=== PATIENT | female | born 1990 ===

== ENCOUNTER 2023-01-11 12:49 | Emergency (ER) | payer MEDICAID, SELFPAY ==
--- NOTE | ~2023-01-11 | XR_ITS ---
EXAMINATION: XR CHEST CLINICAL INFORMATION: Chest pain and shortness of breath COMPARISON: None available. TECHNIQUE: 2 views of the chest were obtained. FINDINGS: Heart is normal in size. Mild perihilar interstitial thickening and peribronchial cuffing is consistent with underlying bronchitis/reactive airway disease. No focal airspace consolidations or pleural effusions XR/XR chest 2V IMPRESSION: Perihilar interstitial thickening and peribronchial cuffing most consistent with bronchitis/reactive airway disease
--- NOTE | 2023-01-11 12:51 | ECG_ITS ---
Test Reason : CHEST PAIN Blood Pressure : / mmHG Vent. Rate : 061 BPM Atrial Rate : 061 BPM P-R Int : 156 ms QRS Dur : 082 ms QT Int : 428 ms P-R-T Axes : 044 032 039 degrees QTc Int : 430 ms Normal sinus rhythm Normal ECG No previous ECGs available Referred By: María Márquez Electronically Signed By:JACQUELINE LYNCH MD
--- NOTE | 2023-01-11 13:00 | ED.CHESTPAIN ---
HPI - Chest Pain General Chief Complaint: Chest Pain <RAHEL Johnson - Last Filed: 01/11/23 13:05> Stated Complaint: chest pains, sob <RAHEL Johnson - Last Filed: 01/11/23 13:05> Time Seen by Provider: 01/11/23 13:21 <RAHEL Johnson - Last Filed: 01/11/23 13:05> Source: patient and electronic repair troubleshooter <Christine Dumont NP - Last Filed: 01/11/23 15:48> Mode of arrival: ambulatory <PARISH Murphy Last Filed: 01/11/23 15:48> Limitations: language barrier <PARISH Murphy Last Filed: 01/11/23 15:48> History of Present Illness HPI narrative: Patient is a 32-year-old female with no reported past medical history, does not take any daily medications, nonsmoker, presenting with pain under her bilateral breasts radiating through to her back for approximately 1 hour prior to arrival. She reports pain is worse with movement and with deep breaths. 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 She denied taking any medications prior to arrival. She denies any history of blood clots, denies any hemoptysis, denies use of OCPs, denies any calf pain or tenderness. She denies any cough, fever, or other recent URI symptoms. <Christine Dumont NP - Last Filed: 01/11/23 15:48> Related Data Home Medications: Previous Rx's Medication Instructions Recorded albuterol sulfate 90 mcg/actuation 2 puff inhalation Q6H PRN 01/11/23 aerosol inhaler shortness of breath or wheezing #6.7 grams prednisone 20 mg tablet 40 mg PO DAILY #10 tabs 01/11/23 <RAHEL Johnson Last Filed: 01/11/23 13:05> Allergies/Adverse Reactions: Allergies Allergy/AdvReac Type Severity Reaction Status Date / Time No Known Allergies Allergy Verified 01/11/23 12:51 <RAHEL Johnson Last Filed: 01/11/23 13:05> Review of Systems Review of Systems: As per HPI. <Christine Dumont NP - Last Filed: 01/11/23 15:48> Yes all other systems are reviewed and are negative <Christine Dumont NP - Last Filed: 01/11/23 15:48> Constitutional: Constitutional: Reports as per HPI <Christine Dumont NP - Last Filed: 01/11/23 15:48> [facility] Social History Social History: Social History Alcohol intake: never Smoked in Last 30 Days: No Use of substances other than those prescribed or required for medical reasons: No Advance Directives: No Advance Directives Information Provided: Yes Patient : No <RAHEL Johnson - Last Filed: 01/11/23 13:05> Physical Exam Vital Signs: Vital Signs: Last Vital Signs Temp 97.8 F 01/11/23 13:02 Pulse 64 01/11/23 14:00 Resp 18 01/11/23 14:00 BP 139/74 01/11/23 13:02 Pulse Ox 100 01/11/23 14:00 O2 Del Method Room Air 01/11/23 14:00 BMI result Body Mass Index 27.5 <RAHEL Johnson - Last Filed: 01/11/23 13:05> Vital Signs: Last Vital Signs Temp 97.8 F 01/11/23 13:02 Pulse 64 01/11/23 14:00 Resp 18 01/11/23 14:00 BP 139/74 01/11/23 13:02 Pulse Ox 100 01/11/23 14:00 O2 Del Method Room Air 01/11/23 14:00 BMI result Body Mass Index 27.5 <Christine Dumont NP - Last Filed: 01/11/23 15:48> Const: General: cooperative, healthy appearing and no acute distress <Christine Dumont NP - Last Filed: 01/11/23 15:48> Orientation/consciousness: oriented to person, oriented to place, oriented to time and patient oriented x3 <Christine Dumont NP - Last Filed: 01/11/23 15:48> Limitations: no limitations <Christine Dumont NP - Last Filed: 01/11/23 15:48> HEENT: Head: Yes normocephalic and Yes atraumatic <Christine Dumont NP - Last Filed: 01/11/23 15:48> Ears: external ears normal <Christine Dumont NP - Last Filed: 01/11/23 15:48> General nose exam: Normal external nose present <Christine Dumont NP - Last Filed: 01/11/23 15:48> Face and sinus: Yes face symmetric <Christine Dumont NP - Last Filed: 01/11/23 15:48> Mouth: oropharynx normal and moist mucous membranes <Christine Dumont NP - Last Filed: 01/11/23 15:48> Throat: Yes uvula midline <Christine Dumont NP - Last Filed: 01/11/23 15:48> Eyes: Pupils: Equal, round and reactive pupils present <Christine Dumont NP - Last Filed: 01/11/23 15:48> Neck: Neck: Yes normal visual inspection and Yes supple <Christine Dumont NP - Last Filed: 01/11/23 15:48> Chest: Chest palpation & inspection: normal inspection of the chest, normal palpation of entire chest wall, no crepitus, no tenderness and No rash <Christine Dumont NP - Last Filed: 01/11/23 15:48> Resp: Effort & Inspection: able to speak in complete sentences, abnormal respiratory pattern (shallow breaths), no cough, no respiratory distress, no tripod positioning and other (shallow breaths) <Christine Dumont NP - Last Filed: 01/11/23 15:48> Auscultation: clear to auscultation bilaterally, no crackles, no rhonchi, no wheezes and lung sounds not diminished <Christine Dumont NP - Last Filed: 01/11/23 15:48> Cardio: Rate: regular rate <Christine Dumont NP - Last Filed: 01/11/23 15:48> Rhythm: regular rhythm <Christine Dumont NP - Last Filed: 01/11/23 15:48> Heart sounds: S1 normal heart sound present and S2 normal heart sound present <Christine Dumont NP - Last Filed: 01/11/23 15:48> GI: Palpation (GI): Soft to palpation and nontender <Christine Dumont NP - Last Filed: 01/11/23 15:48> Auscultation: normoactive bowel sounds <Christine Dumont NP - Last Filed: 01/11/23 15:48> : General: Yes no CVA tenderness <Christine Dumont NP - Last Filed: 01/11/23 15:48> Back/Spine/Pelvis: Back: no CVA tenderness <Christine Dumont NP - Last Filed: 01/11/23 15:48> Skin: General skin exam: elasticity normal and turgor normal <Christine Dumont NP - Last Filed: 01/11/23 15:48> Neuro: General: oriented to person, oriented to place, oriented to time, patient oriented x3, moves all extremities, no focal motor deficits and CN's II-XI intact bilaterally <Christine Dumont NP - Last Filed: 01/11/23 15:48> Cranial nerves: Yes Equal, round and reactive pupils present <Christine Dumont NP - Last Filed: 01/11/23 15:48> Cognition (Neuro): normal cognition <Christine Dumont NP - Last Filed: 01/11/23 15:48> Extrem: General: Yes full ROM, Yes no pedal edema and Yes no calf tenderness <Christine Dumont NP - Last Filed: 01/11/23 15:48> Psych: Mental Status: mental status grossly normal <Christine Dumont NP - Last Filed: 01/11/23 15:48> Affect: normal affect <Christine Dumont NP - Last Filed: 01/11/23 15:48> Thought process: Normal thought process present <Christine Dumont NP - Last Filed: 01/11/23 15:48> Course Course Course Narrative: RME: 32yo F w/no sig PMHx c/o SOB, CP and lung pain x 1hr. Recently traveled to [place]. denies hx clots, smoking, oral OCPs Patient appears uncomfortable, tachypneic, shallow breathing EKG, labs including d-dimer, CXR, duoneb ordered Full HPI, ROS and PE to be performed by primary ED provider. <RAHEL Johnson - Last Filed: 01/11/23 13:05> RME: 32yo F w/no sig PMHx c/o SOB, CP and lung pain x 1hr. Recently traveled to [place]. denies hx clots, smoking, oral OCPs Patient appears uncomfortable, tachypneic, shallow breathing EKG, labs including d-dimer, CXR, duoneb ordered Full HPI, ROS and PE to be performed by primary ED provider. 14:45 Labs unremarkable, troponin and D-dimer negative. Patient reports symptoms improved slightly after breathing treatment. Lungs remain clear. Awaiting results of chest x-ray. Will treat pain with ketorolac and Flexeril. 15:30 XR/XR chest 2V IMPRESSION: Perihilar interstitial thickening and peribronchial cuffing most consistent with bronchitis/reactive airway disease Will treat with short course of prednisone and albuterol inhaler, instructed patient to follow up with her PCP, return precautions discussed at bedside. <Christine Dumont NP - Last Filed: 01/11/23 15:48> Medications Administered Discontinued Medications Generic Name Dose Route Start Last Admin Trade Name Freq PRN Reason Stop Dose Admin Albuterol/Ipratropium 3 ml 01/11/23 13:04 01/11/23 13:25 Albuterol/Iprat 2.5/0.5mg 3 Ml Ampul.Neb INHALE 01/11/23 13:05 3 ml ONCE ONE Administration Cyclobenzaprine HCl 10 mg 01/11/23 14:27 01/11/23 15:01 Cyclobenzaprine Hcl 10 Mg Tablet PO 01/11/23 14:28 10 mg ONCE ONE Administration Ketorolac Tromethamine 30 mg 01/11/23 14:27 01/11/23 15:01 Ketorolac Tromethamine 30 Mg/Ml Vial IM 01/11/23 14:28 30 mg ONCE ONE Administration <RAHEL Johnson - Last Filed: 01/11/23 13:05> Medications Administered Discontinued Medications Generic Name Dose Route Start Last Admin Trade Name Mark PRN Reason Stop Dose Admin Albuterol/Ipratropium 3 ml 01/11/23 13:04 01/11/23 13:25 Albuterol/Iprat 2.5/0.5mg 3 Ml Ampul.Neb INHALE 01/11/23 13:05 3 ml ONCE ONE Administration Cyclobenzaprine HCl 10 mg 01/11/23 14:27 01/11/23 15:01 Cyclobenzaprine Hcl 10 Mg Tablet PO 01/11/23 14:28 10 mg ONCE ONE Administration Ketorolac Tromethamine 30 mg 01/11/23 14:27 01/11/23 15:01 Ketorolac Tromethamine 30 Mg/Ml Vial IM 01/11/23 14:28 30 mg ONCE ONE Administration <Christine Dumont NP - Last Filed: 01/11/23 15:48> Medical Decision Making Medical Decision Making MDM Narrative: Patient is a 32-year-old female with no reported past medical history, does not take any daily medications, nonsmoker, presenting with acute onset pain under her bilateral breasts radiating through to her back for approximately 1 hour prior to arrival. On exam patient is noted to have shallow respirations and appears somewhat uncomfortable, however, lungs CTA throughout, oxygen 99-100% on room air, afebrile, not tachycardic, no calf swelling or tenderness, no LE edema. No significant pmhx, HEART score 0, PERC negative, history without concerning features (not substernal, not exertional, not relieved with rest). Concern for ACS, PE, pneumothorax, pneumonia, GERD, musculoskeletal cause . Lower concern for aortic dissection, esophageal rupture, cardiac tamponade, endocarditis, pericarditis. Plan: labs including troponin and d-dimer, EKG, CXR, nebulizer tx Please refer to course for remaining clinical decision making. <Christine Dumont NP - Last Filed: 01/11/23 15:48> Differential Diagnosis Differential Diagnoses: The differential diagnosis associated with the presentation includes <Christine Dumont NP - Last Filed: 01/11/23 15:48> As above. <Christine Dumont NP - Last Filed: 01/11/23 15:48> Lab Data [facility] Lab Attestation statement: I reviewed the patient's lab results. <Christine Dumont NP - Last Filed: 01/11/23 15:48> Result Diagrams: 01/11/23 13:16 01/11/23 13:16 <RAHEL Johnson - Last Filed: 01/11/23 13:05> Labs: Lab Results 01/11/23 01/11/23 01/11/23 Range/Units 13:16 13:16 13:16 WBC 8.5 (4.8-10.8) X10*3/uL RBC 5.00 (4.20-5.50) X10*6/uL Hgb 15.0 (12.0-16.0) g/dl Hct 44.1 (37.0-47.0) % MCV 88.2 (80.0-98.0) fL MCH 30.0 (27.0-33.0) pg MCHC 34.0 (31.0-35.0) g/dl RDW 12.0 (11.0-16.0) % Plt Count 286 (160-400) X10*3/uL MPV 10.0 (9.4-12.3) fL Immature Gran % (Auto) 0.2 (0.0-0.4) % Neut % (Auto) 58.2 (45-73) % Lymph % (Auto) 34.5 (20-40) % Dade % (Auto) 5.8 (2-11) % Eos % (Auto) 0.7 (0-4) % Baso % (Auto) 0.6 (0-2) % Lymph # (Auto) 2.9 (1.2-4.9) X10*3/uL Dade # (Auto) 0.5 (0.1-1.2) X10*3/uL Eos # (Auto) 0.1 (0.0-0.4) X10*3/uL Baso # (Auto) 0.1 (0.0-0.2) X10*3/uL Abs Immat Gran (auto) 0.02 (0.00-0.03) X10*3/uL Absolute Neuts (auto) 5.0 (2.0-8.3) x10*3/uL Absolute Nucleated RBC 0.000 (0.0-0.012) X10*3/uL Nucleated RBC % (auto) 0.0 (0.0-0.2) /100WBC D-Dimer High Sensitivty 152 NG/ML Sodium 140 (135-145) mmol/L Potassium 4.1 (3.3-5.1) mmol/L Chloride 106 (96-108) mmol/L Carbon Dioxide 23 (22-29) mmol/L Anion Gap 15 (12-20) BUN 7 L (9-16) mg/dL Creatinine 0.65 (0.5-1.4) mg/dL Estim Creat Clear Calc 119.0 Estimated GFR > 60 Random Glucose 83 (60-115) mg/dL Calcium 9.8 (8.4-10.2) mg/dL Magnesium 2.2 (1.6-2.6) mg/dL Total Bilirubin 0.9 (0.0-1.0) mg/dL Direct Bilirubin 0.2 (0.0-0.5) mg/dL AST 31 (5-31) U/L ALT 25 (0-31) U/L Alkaline Phosphatase 73 (39-117) U/L Troponin I High Sens (<3.5-17.0) ng/L B-Natriuretic Peptide (<100) pg/mL Total Protein 8.5 H (6.5-8.0) g/dL Albumin 4.9 (3.5-5.0) g/dL Lipase 42 (8-78) U/L 01/11/23 01/11/23 Range/Units 13:16 13:16 WBC (4.8-10.8) X10*3/uL RBC (4.20-5.50) X10*6/uL Hgb (12.0-16.0) g/dl Hct (37.0-47.0) % MCV (80.0-98.0) fL MCH (27.0-33.0) pg MCHC (31.0-35.0) g/dl RDW (11.0-16.0) % Plt Count (160-400) X10*3/uL MPV (9.4-12.3) fL Immature Gran % (Auto) (0.0-0.4) % Neut % (Auto) (45-73) % Lymph % (Auto) (20-40) % Dade % (Auto) (2-11) % Eos % (Auto) (0-4) % Baso % (Auto) (0-2) % Lymph # (Auto) (1.2-4.9) X10*3/uL Dade # (Auto) (0.1-1.2) X10*3/uL Eos # (Auto) (0.0-0.4) X10*3/uL Baso # (Auto) (0.0-0.2) X10*3/uL Abs Immat Gran (auto) (0.00-0.03) X10*3/uL Absolute Neuts (auto) (2.0-8.3) x10*3/uL Absolute Nucleated RBC (0.0-0.012) X10*3/uL Nucleated RBC % (auto) (0.0-0.2) /100WBC D-Dimer High Sensitivty NG/ML Sodium (135-145) mmol/L Potassium (3.3-5.1) mmol/L Chloride (96-108) mmol/L Carbon Dioxide (22-29) mmol/L Anion Gap (12-20) BUN (9-16) mg/dL Creatinine (0.5-1.4) mg/dL Estim Creat Clear Calc Estimated GFR Random Glucose (60-115) mg/dL Calcium (8.4-10.2) mg/dL Magnesium (1.6-2.6) mg/dL Total Bilirubin (0.0-1.0) mg/dL Direct Bilirubin (0.0-0.5) mg/dL AST (5-31) U/L ALT (0-31) U/L Alkaline Phosphatase (39-117) U/L Troponin I High Sens < 2.7 (<3.5-17.0) ng/L B-Natriuretic Peptide 52 (<100) pg/mL Total Protein (6.5-8.0) g/dL Albumin (3.5-5.0) g/dL Lipase (8-78) U/L <RAHEL Johnson - Last Filed: 01/11/23 13:05> Lab Results 01/11/23 01/11/23 01/11/23 Range/Units 13:16 13:16 13:16 WBC 8.5 (4.8-10.8) X10*3/uL RBC 5.00 (4.20-5.50) X10*6/uL Hgb 15.0 (12.0-16.0) g/dl Hct 44.1 (37.0-47.0) % MCV 88.2 (80.0-98.0) fL MCH 30.0 (27.0-33.0) pg MCHC 34.0 (31.0-35.0) g/dl RDW 12.0 (11.0-16.0) % Plt Count 286 (160-400) X10*3/uL MPV 10.0 (9.4-12.3) fL Immature Gran % (Auto) 0.2 (0.0-0.4) % Neut % (Auto) 58.2 (45-73) % Lymph % (Auto) 34.5 (20-40) % Dade % (Auto) 5.8 (2-11) % Eos % (Auto) 0.7 (0-4) % Baso % (Auto) 0.6 (0-2) % Lymph # (Auto) 2.9 (1.2-4.9) X10*3/uL Dade # (Auto) 0.5 (0.1-1.2) X10*3/uL Eos # (Auto) 0.1 (0.0-0.4) X10*3/uL Baso # (Auto) 0.1 (0.0-0.2) X10*3/uL Abs Immat Gran (auto) 0.02 (0.00-0.03) X10*3/uL Absolute Neuts (auto) 5.0 (2.0-8.3) x10*3/uL Absolute Nucleated RBC 0.000 (0.0-0.012) X10*3/uL Nucleated RBC % (auto) 0.0 (0.0-0.2) /100WBC D-Dimer High Sensitivty 152 NG/ML Sodium 140 (135-145) mmol/L Potassium 4.1 (3.3-5.1) mmol/L Chloride 106 (96-108) mmol/L Carbon Dioxide 23 (22-29) mmol/L Anion Gap 15 (12-20) BUN 7 L (9-16) mg/dL Creatinine 0.65 (0.5-1.4) mg/dL Estim Creat Clear Calc 119.0 Estimated GFR > 60 Random Glucose 83 (60-115) mg/dL Calcium 9.8 (8.4-10.2) mg/dL Magnesium 2.2 (1.6-2.6) mg/dL Total Bilirubin 0.9 (0.0-1.0) mg/dL Direct Bilirubin 0.2 (0.0-0.5) mg/dL AST 31 (5-31) U/L ALT 25 (0-31) U/L Alkaline Phosphatase 73 (39-117) U/L Troponin I High Sens (<3.5-17.0) ng/L B-Natriuretic Peptide (<100) pg/mL Total Protein 8.5 H (6.5-8.0) g/dL Albumin 4.9 (3.5-5.0) g/dL Lipase 42 (8-78) U/L 01/11/23 01/11/23 Range/Units 13:16 13:16 WBC (4.8-10.8) X10*3/uL RBC (4.20-5.50) X10*6/uL Hgb (12.0-16.0) g/dl Hct (37.0-47.0) % MCV (80.0-98.0) fL MCH (27.0-33.0) pg MCHC (31.0-35.0) g/dl RDW (11.0-16.0) % Plt Count (160-400) X10*3/uL MPV (9.4-12.3) fL Immature Gran % (Auto) (0.0-0.4) % Neut % (Auto) (45-73) % Lymph % (Auto) (20-40) % Dade % (Auto) (2-11) % Eos % (Auto) (0-4) % Baso % (Auto) (0-2) % Lymph # (Auto) (1.2-4.9) X10*3/uL Dade # (Auto) (0.1-1.2) X10*3/uL Eos # (Auto) (0.0-0.4) X10*3/uL Baso # (Auto) (0.0-0.2) X10*3/uL Abs Immat Gran (auto) (0.00-0.03) X10*3/uL Absolute Neuts (auto) (2.0-8.3) x10*3/uL Absolute Nucleated RBC (0.0-0.012) X10*3/uL Nucleated RBC % (auto) (0.0-0.2) /100WBC D-Dimer High Sensitivty NG/ML Sodium (135-145) mmol/L Potassium (3.3-5.1) mmol/L Chloride (96-108) mmol/L Carbon Dioxide (22-29) mmol/L Anion Gap (12-20) BUN (9-16) mg/dL Creatinine (0.5-1.4) mg/dL Estim Creat Clear Calc Estimated GFR Random Glucose (60-115) mg/dL Calcium (8.4-10.2) mg/dL Magnesium (1.6-2.6) mg/dL Total Bilirubin (0.0-1.0) mg/dL Direct Bilirubin (0.0-0.5) mg/dL AST (5-31) U/L ALT (0-31) U/L Alkaline Phosphatase (39-117) U/L Troponin I High Sens < 2.7 (<3.5-17.0) ng/L B-Natriuretic Peptide 52 (<100) pg/mL Total Protein (6.5-8.0) g/dL Albumin (3.5-5.0) g/dL Lipase (8-78) U/L <Christine Dumont NP - Last Filed: 01/11/23 15:48> Independent Interpretation I performed an independent interpretation of an: Plain X-Ray <Christine Dumont NP - Last Filed: 01/11/23 15:48> Interpretation: I independently reviewed the x-ray and agree with the radiologist's interpretation. <Christine Dumont NP - Last Filed: 01/11/23 15:48> Radiology Impression Discussion of test interpretation with radiology: I have reviewed the radiologist's reading. <Christine Dumont NP - Last Filed: 01/11/23 15:48> Radiologist Impression: FINDINGS: Heart is normal in size. Mild perihilar interstitial thickening and peribronchial cuffing is consistent with underlying bronchitis/reactive airway disease. No focal airspace consolidations or pleural effusions XR/XR chest 2V IMPRESSION: Perihilar interstitial thickening and peribronchial cuffing most consistent with bronchitis/reactive airway disease <PARISH Murphy Last Filed: 01/11/23 15:48> External Record Review External record reviewed: Inpatient record, Office record and Outpatient record <PARISH Murphy Last Filed: 01/11/23 15:48> Prescription Management I considered prescription management with: Pain Medication <PARISH Murphy Last Filed: 01/11/23 15:48> Discharge Plan Discharge Clinical Impression: Bronchitis <RAHEL Johnson Last Filed: 01/11/23 13:05> Patient Disposition: Home, Self-Care <RAHEL Johnson Last Filed: 01/11/23 13:05> Instructions: How to Use a Metered-Dose Inhaler (ED), Acute Bronchitis (ED) <RAHEL Johnson Last Filed: 01/11/23 13:05> Additional Instructions: You were evaluated in the emergency department today for chest pain worse with taking a deep breath. Your chest x-ray shows evidence of bronchitis. You are being prescribed a short course of a steroid called prednisone. You are also being prescribed an albuterol inhaler which you may use as needed per instructions. You should follow-up with your primary care provider within the next 2 days. Return to the emergency department if you experience worsening or uncontrolled chest pain, shortness of breath, lightheadedness, feeling faint, fever greater than 100.4? F, nausea, vomiting, or any other concerning symptoms. <RAHEL Johnson Last Filed: 01/11/23 13:05> Prescriptions: New prednisone 20 mg tablet 40 mg PO DAILY Qty: 10 0RF albuterol sulfate 90 mcg/actuation HFA aerosol inhaler 2 puff inhalation Q6H PRN (Reason: shortness of breath or wheezing) Qty: 6.7 0RF <RAHEL Johnson Last Filed: 01/11/23 13:05> Print Language: Afghan <RAHEL Johnson - Last Filed: 01/11/23 13:05>
[2023-01-11 13:02] VITALS: BP 139/74; PULSE 80; RESP 22; TEMP 36.6; O2SAT 99; BMI 27.5
[2023-01-11 13:21] LABS: MANUAL DIFF FLAG NO
[2023-01-11 13:23] LABS: Basophils Absolute Auto 0.1 X10*3/uL (0.0-0.2); Basophils Percent Auto 0.6 % (0-2); Eosinophils Absolute Auto 0.1 X10*3/uL (0.0-0.4); Eosinophils Percent Auto 0.7 % (0-4); Hematocrit 44.1 % (37.0-47.0); Imm Gran Abs Auto 0.02 X10*3/uL (0.00-0.03); Imm Gran Pct Auto 0.2 % (0.0-0.4); Lymphocytes Absolute Auto 2.9 X10*3/uL (1.2-4.9); Lymphocytes Percent Auto 34.5 % (20-40); Mean Corpuscular Volume 88.2 fL (80.0-98.0); Monocytes Absolute Auto 0.5 X10*3/uL (0.1-1.2); Monocytes Percent Auto 5.8 % (2-11); Neutrophils Percent Auto 58.2 % (45-73); Platelet Count 286 X10*3/uL (160-400); White Blood Count 8.5 X10*3/uL (4.8-10.8)
[2023-01-11] MEDS: Albuterol/Iprat 2.5/0.5MG 3 ML AMPUL.NEB INHALE (13:25)
[2023-01-11 13:26] VITALS: PULSE 71; RESP 15; O2SAT 100
[2023-01-11 13:32] LABS: D Dimer High Sensitivity 152 NG/ML
[2023-01-11 13:41] LABS: Alanine Aminotransferase 25 U/L (0-31); Albumin Level 4.9 g/dL (3.5-5.0); Alkaline Phosphatase 73 U/L (39-117); Anion Gap 15 (12-20); Aspartate Amino Transferase 31 U/L (5-31); Bilirubin Direct 0.2 mg/dL (0.0-0.5); Bilirubin Total 0.9 mg/dL (0.0-1.0); Blood Urea Nitrogen 7 mg/dL (9-16); Calcium 9.8 mg/dL (8.4-10.2); Carbon Dioxide 23 mmol/L (22-29); Chloride 106 mmol/L (96-108); Estimated Glomerular Filt Rate > 60; Glucose Random 83 mg/dL (60-115); Lipase 42 U/L (8-78); Magnesium 2.2 mg/dL (1.6-2.6); Potassium 4.1 mmol/L (3.3-5.1); Sodium 140 mmol/L (135-145); Total Protein 8.5 g/dL (6.5-8.0)
[2023-01-11 13:43] LABS: B Type Natriuretic Peptide 52 pg/mL (<100)
[2023-01-11 13:49] LABS: Troponin-I High Sensitivity < 2.7 ng/L (<3.5-17.0)
[2023-01-11 14:00] VITALS: PULSE 64; RESP 18; O2SAT 100
[2023-01-11 14:01] VITALS: PULSE 64
--- NOTE | 2023-01-11 14:09 | PC.NURSE ---
pt a&ox4, vss, reporting 9/10 episgastric pain radiating to her back that started ~ 2hrs prior to ED arrival, tech at bedside performing EKG, labs draw. resp at bedside for breathing treatment, pt pending XR and ED provider. no new orders at this time.
[2023-01-11] MEDS: Ketorolac Tromethamine 30 MG/ML VIAL IM (15:01)
[2023-01-11] MEDS: Cyclobenzaprine HCl 10 MG TABLET PO (15:01)
--- NOTE | 2023-01-11 15:07 | PC.NURSE ---
pt medicated per MAR for 9/10 back pain. pt pending XR results, no new orders at this time.
== END 2023-01-11 16:09 | disposition home or self-care (01) ==
PROVIDERS: Physician Assistant; Emergency Provider Emergency Medicine
DX: J40 Bronchitis, not specified as acute or chronic (principal); R06.02 Shortness of breath
CPT/HCPCS: 36415; 71046; 80048; 80076; 83690; 83735; 83880; 84484; 85025; 85379; 93005; 94640; 96372; 99284; 99285; J1885

== ENCOUNTER 2023-04-04 01:35 | Emergency (ER) | payer MEDICAID, OTHER, SELFPAY ==
[2023-04-04 01:45] VITALS: BP 135/77; PULSE 78; RESP 19; TEMP 36.5; O2SAT 100; BMI 28.3
[2023-04-04 02:03] LABS: Appearance Urine Clear; Color Urine Yellow; Glucose Urine UA Negative (Negative); Leukocyte Esterase Urine Large (3+) (Negative); Nitrite Urine Negative (Negative); PH 6.5 (5.0-9.0); Specific Gravity - Urine <= 1.005 (1.005-1.025); UMIC TRIGGER UACC YES; Urine Blood Large (3+) (Negative); Urine Ketones Negative (Negative); Urine Protein 30 (1+) mg/dL (Neg-Trace)
[2023-04-04 02:05] LABS: Bacteria Urine None Seen (None Seen); Hyaline Casts Urine 0-2 /LPF (0-2); Squamous Epithelial Cell Urine 0-2 /HPF (0-2); UACC Culture Trigger YES; WBC Urine >50 /HPF (0-5)
[2023-04-04 02:58] LABS: MANUAL DIFF FLAG NO
[2023-04-04 02:59] LABS: Basophils Absolute Auto 0.1 X10*3/uL (0.0-0.2); Basophils Percent Auto 0.4 % (0-2); Eosinophils Absolute Auto 0.1 X10*3/uL (0.0-0.4); Hematocrit 39.9 % (37.0-47.0); Hemoglobin 13.5 g/dl (12.0-16.0); Imm Gran Abs Auto 0.03 X10*3/uL (0.00-0.03); Imm Gran Pct Auto 0.2 % (0.0-0.4); Lymphocytes Absolute Auto 3.2 X10*3/uL (1.2-4.9); Lymphocytes Percent Auto 23.2 % (20-40); Mean Corpuscular HGB Conc 33.8 g/dl (31.0-35.0); Mean Corpuscular Hemoglobin 30.3 pg (27.0-33.0); Mean Corpuscular Volume 89.5 fL (80.0-98.0); Mean Platelet Volume 9.7 fL (9.4-12.3); Monocytes Percent Auto 7.2 % (2-11); Neutrophils Absolute Auto 9.4 x10*3/uL (2.0-8.3); Platelet Count 258 X10*3/uL (160-400); Red Blood Count 4.46 X10*6/uL (4.20-5.50); Red Cell Distribution Width 11.9 % (11.0-16.0); White Blood Count 13.9 X10*3/uL (4.8-10.8)
[2023-04-04 03:18] LABS: Anion Gap 18 (12-20); Blood Urea Nitrogen 6 mg/dL (9-16); Calcium 9.4 mg/dL (8.4-10.2); Carbon Dioxide 19 mmol/L (22-29); Chloride 106 mmol/L (96-108); Creatinine Clr Calc Pharmacy 106.1; Estimated Glomerular Filt Rate > 60; Glucose Random 104 mg/dL (60-115); Potassium 4.5 mmol/L (3.3-5.1); Sodium 138 mmol/L (135-145)
--- NOTE | 2023-04-04 05:29 | ED.FEMALEGU ---
HPI - Female Genitourinary General Chief complaint: Urogenital-Female Stated complaint: Abdominal Pain Time Seen by Provider: 04/04/23 04:48 Source: patient, family and green marketer Mode of arrival: ambulatory Limitations: no limitations History of Present Illness HPI Narrative: 32-year-old female came in for 2 days history of dysuria, frequency urination, urgency, passing blood in the urine, suprapubic pressure and pain. No fever, no chills, no nausea, no vomiting. No vaginal discharge. Related Data Previous Rx's Medication Instructions Recorded albuterol sulfate 90 mcg/actuation 2 puff inhalation Q6H PRN 01/11/23 aerosol inhaler shortness of breath or wheezing #6.7 grams prednisone 20 mg tablet 40 mg PO DAILY #10 tabs 01/11/23 sulfamethoxazole 800 1 tab PO BID #20 tabs 04/04/23 mg-trimethoprim 160 mg tablet (Bactrim DS) Allergies Allergy/AdvReac Type Severity Reaction Status Date / Time No Known Allergies Allergy Verified 04/04/23 01:44 Review of Systems Review of Systems: All other systems are reviewed and are negative Constitutional: Reports as per HPI and Reports no additional constitutional complaints Eyes: Reports as per HPI and Reports no additional eye complaints Reports system reviewed and no additional complaints, except as documented Cardiovascular: Reports as per HPI and Reports no additional cardiovascular complaints Respiratory: Reports as per HPI and Reports no additional respiratory complaints Gastrointestinal: Reports as per HPI and Reports no additional gastrointestinal complaints Genitourinary: Reports no additional female genitourinary complaints Musculoskeletal: Reports no additional musculoskeletal complaints Skin/Breast: Reports system reviewed and no additional complaints, except as docu Psychiatric: Reports no additional psychiatric complaints Endocrine: Reports no additional endocrine complaints Hematologic/Lymphatic: Reports no additional hematologic/lymphatic complaints Allergic/Immunologic: Reports no additional allergic/immunologic complaints Reports system reviewed and no additional complaints, except as documented and Reports Abnormal speech present [facility] Social History Social History Alcohol intake: never Advance Directives: No Advance Directives Information Provided: Yes Physical Exam Vital Signs: Vital Signs: Last Vital Signs Temp 97.7 F 04/04/23 01:45 Pulse 78 04/04/23 01:45 Resp 19 04/04/23 01:45 BP 135/77 04/04/23 01:45 Pulse Ox 100 07/28/23 01:45 O2 Del Method Room Air 04/04/23 01:45 BMI result Body Mass Index 28.3 Vital signs have been reviewed as appeared to be correct. Blood pressure normal. Heart rate normal. Respiration rate normal. Temperature normal. Oxygen saturation normal. Appearance: Alert. Oriented X3. No acute distress. Head: Normal external exam. Normocephalic. Atraumatic. No Castillo signs noted. No raccoon eyes noted Eyes: PERRLA. EOMI. Conjunctiva and sclera normal. Eyelids normal. ENT: TM's Normal. Pharynx normal. Uvula midline. Moist mucous membranes. No trismus noted. No drooling noted. No muffled voice noted. Neck: Normal inspection. Neck supple. FROM. No adenopathy. Thyroid Normal. No meningeal signs. No neck mass noted. CVS: Normal heart rate and rhythm. Heart sound normal. No murmurs noted. Pulses normal throughout. Respiratory: No respiratory distress. Painless inspiration. Breath sounds normal. No wheezes/rales/rhonchi noted. Chest nontender. No accessory muscle usage noted or decreased air movement noted. Abdomen: Suprapubic tenderness, no rebound tenderness. Bowel sounds normal in all 4 quadrants. No distention noted. No organomegaly noted. No visible injury noted. Back: No CVA tenderness. Full range of motion noted. Skin: Skin warm and dry. Normal skin color. Normal skin turgor. No rashes/lesions/lacerations noted. Extremities: No lower extremity edema. Extremities exhibit normal range of motion. Extremities nontender. Neuro: Oriented X 3. Cranial nerve exam: II-XII are grossly intact No motor deficit. No sensory deficit. Reflexes normal. Course Course Course Narrative: 32-year-old female came in with dysuria, hematuria, frequent urination, urgency urination, exam and findings are consistent with cystitis/UTI. Will start the patient on Bactrim, patient was instructed to drink plenty of fluid and follow-up with PCP. Medical Decision Making Differential Diagnosis Differential Diagnoses: The differential diagnosis associated with the presentation includes (Cystitis, UTI, pyelonephritis, mucy-ni-eaaas abnormality, severe anemia.) Admission/Observation Consideration of admission/observation: Escalation of care including admission/observation considered Lab Data MDM Lab Attestation statement: I reviewed the patient's lab results. 04/04/23 02:55 04/04/23 02:55 Labs: Lab Results 04/04/23 04/04/23 04/04/23 Range/Units 01:55 02:55 02:55 WBC 13.9 H (4.8-10.8) X10*3/uL RBC 4.46 (4.20-5.50) X10*6/uL Hgb 13.5 (12.0-16.0) g/dl Hct 39.9 (37.0-47.0) % MCV 89.5 (80.0-98.0) fL MCH 30.3 (27.0-33.0) pg MCHC 33.8 (31.0-35.0) g/dl RDW 11.9 (11.0-16.0) % Plt Count 258 (160-400) X10*3/uL MPV 9.7 (9.4-12.3) fL Immature Gran % (Auto) 0.2 (0.0-0.4) % Neut % (Auto) 68.0 (45-73) % Lymph % (Auto) 23.2 (20-40) % [place] % (Auto) 7.2 (2-11) % Eos % (Auto) 1.0 (0-4) % Baso % (Auto) 0.4 (0-2) % Lymph # (Auto) 3.2 (1.2-4.9) X10*3/uL [place] # (Auto) 1.0 (0.1-1.2) X10*3/uL Eos # (Auto) 0.1 (0.0-0.4) X10*3/uL Baso # (Auto) 0.1 (0.0-0.2) X10*3/uL Abs Immat Gran (auto) 0.03 (0.00-0.03) X10*3/uL Absolute Neuts (auto) 9.4 H (2.0-8.3) x10*3/uL Absolute Nucleated RBC 0.000 (0.0-0.012) X10*3/uL Nucleated RBC % (auto) 0.0 (0.0-0.2) /100WBC Sodium 138 (135-145) mmol/L Potassium 4.5 (3.3-5.1) mmol/L Chloride 106 (96-108) mmol/L Carbon Dioxide 19 L (22-29) mmol/L Anion Gap 18 (12-20) BUN 6 L (9-16) mg/dL Creatinine 0.72 (0.5-1.4) mg/dL Estim Creat Clear Calc 106.1 Estimated GFR > 60 Random Glucose 104 (60-115) mg/dL Calcium 9.4 (8.4-10.2) mg/dL Urine Color Yellow Urine Appearance Clear Urine pH 6.5 (5.0-9.0) Ur Specific [place] <= 1.005 (1.005-1.025) Urine Protein 30 (1+) H (Neg-Trace) mg/dL Urine Glucose (UA) Negative (Negative) mg/dL Urine Ketones Negative (Negative) mg/dL Urine Blood Large (3+) H (Negative) Urine Nitrite Negative (Negative) Ur Leukocyte Esterase Large (3+) H (Negative) Urine RBC 11-20 H (0-2) /HPF Urine WBC >50 H (0-5) /HPF Ur Squamous Epith Cells 0-2 (0-2) /HPF Urine Bacteria None Seen (None Seen) Hyaline Casts 0-2 (0-2) /LPF Discharge Plan Discharge Clinical Impression: Urinary tract infection, Cystitis Patient Disposition: Home, Self-Care Instructions: Urinary Tract Infection in Women (DC) Additional Instructions: Drink plenty of fluids, take the antibiotic as prescribed, follow-up with your PCP, return if symptoms is not improving in 2 days. Prescriptions: New sulfamethoxazole-trimethoprim [Bactrim DS] 800-160 mg tablet 1 tab PO BID Qty: 20 0RF No Action prednisone 20 mg tablet 40 mg PO DAILY Qty: 10 0RF albuterol sulfate 90 mcg/actuation HFA aerosol inhaler 2 puff inhalation Q6H PRN (Reason: shortness of breath or wheezing) Qty: 6.7 0RF
[2023-04-04] MEDS: Sulfamethox/Trimeth 800/160 TABLET 1 TAB PO (06:03)
== END 2023-04-04 06:19 | disposition home or self-care (01) ==
PROVIDERS: Emergency Provider Emergency Medicine
DX: N39.0 Urinary tract infection, site not specified (principal); Z79.899 Other long term (current) drug therapy
CPT/HCPCS: 36415; 80048; 81001; 85025; 87086; 87088; 87186; 99283; 99284

== ENCOUNTER 2024-06-09 17:06 | Emergency (ER) | payer MEDICAID, SELFPAY ==
--- NOTE | ~2024-06-09 | XR_ITS ---
EXAMINATION: XR CHEST CLINICAL INFORMATION: Fever, cough COMPARISON: Chest x-ray on 01/11/2023 TECHNIQUE: 2 views of the chest were obtained. FINDINGS: No significant abnormality is noted involving the heart, lungs, mediastinum, bony thorax or soft tissues. XR/XR chest 2V IMPRESSION: Unremarkable examination. Electronically signed by: Meche Baker MD 06/09/2024 07:16 PM EDT RP
[2024-06-09 17:50] VITALS: BP 119/67; PULSE 104; RESP 18; TEMP 37.5; O2SAT 98; BMI 22.2
--- NOTE | 2024-06-09 17:50 | ED.GENADULT ---
HPI - General Adult General Chief complaint: Upper Respiratory Symptoms Stated complaint: fever, sore throat Time Seen by Provider: 06/09/24 18:07 Source: patient Mode of arrival: ambulatory Limitations: no limitations History of Present Illness HPI narrative: Patient is a 33-year-old female who presents emergency department with evaluation of upper respiratory symptoms onset today; fever, sore throat, pain in her chest with cough and deep breathing. She expresses concern that she may have pneumonia, she had pneumonia 1 year ago and felt similar to how she does now. She reports multiple family members including her spouse and nieces have been ill recently with similar symptoms, reportedly nieces tested positive for a retrovirus. Related Data Previous Rx's ?Medication ?Instructions ?Recorded albuterol sulfate 90 mcg/actuation 2 puff inhalation Q6H PRN 01/11/23 aerosol inhaler shortness of breath or wheezing #6.7 grams prednisone 20 mg tablet 40 mg (2 x 20 mg) PO DAILY #10 tabs 01/11/23 sulfamethoxazole 800 1 tab PO BID 10 days #20 tabs 04/04/23 mg-trimethoprim 160 mg tablet (Bactrim DS) cefdinir 300 mg capsule 300 mg PO BID 7 days #14 caps 04/08/23 acetaminophen 500 mg capsule 1,000 mg (2 x 500 mg) PO Q6H PRN 06/09/24 fever or pain #30 caps ibuprofen 600 mg tablet 600 mg PO Q8H PRN fever or pain 06/09/24 #30 tabs phenol 1.4 % mucosal aerosol spray 4 spray mucous membrane Q4H PRN 06/09/24 (Chloraseptic Throat Fords) sore throat #177 mL Allergies Allergy/AdvReac Type Severity Reaction Status Date / Time No Known Allergies Allergy Verified 06/09/24 17:54 Review of Systems Review of Systems: Yes all other systems are reviewed and are negative PMFSH Past Medical History Attestation statement: The following information was validated with the patient. Source: old records reviewed Social History Social History Alcohol intake: never Advance Directives: No Advance Directives Information Provided: No Physical Exam ED Vital Signs: Vital Signs - 24 hr 06/09/24 17:50 06/09/24 19:19 06/09/24 20:57 Temperature 99.5 F 102.5 F H 101.7 F H Pulse Rate 104 H 93 Respiratory Rate 18 18 Blood Pressure 119/67 118/74 Pulse Oximetry 98 98 Oxygen Delivery Method Room Air Room Air 06/09/24 21:00 06/09/24 22:09 Temperature 101.7 F H 101.7 F H Pulse Rate 60 Respiratory Rate 14 Blood Pressure 00/00 L Pulse Oximetry 95 Oxygen Delivery Method Room Air BMI result Body Mass Index 22.2 Appearance: Alert.?Oriented to person, place and time. No acute distress.?Normal affect. Eyes: Pupils equal, round and reactive to light.? EOMI. No nystagmus. ENT: Pharynx erythematous without tonsillar hypertrophy or exudates. Uvula midline. No trismus. No drooling. TM normal bilaterally.?? Neck: Normal inspection.? Neck supple.??No cervical adenopathy CVS: Heart sounds normal. Normal heart rate and rhythm.? Pulses normal.?? Respiratory: No respiratory distress.? Lung sounds clear to auscultation bilaterally?? Abdomen: Soft and non-tender. Normoactive bowel sounds. Skin: Skin warm and dry.? Normal skin color.? ? Extremities: No lower extremity edema.? No calf ttp? Neuro: Moves all extremities spontaneously. Sensation intact bilaterally. CN II-XII intact. No focal neuro deficits. Ambulates with normal steady gait. Course Course Course Narrative: This is a rapid medical exam performed by Jack Dumont NP: Additional HPI, ROS, PE not included below will be deferred to primary provider. Patient is a 33-year-old female presenting to the ED with complaint of fever and sore throat, shortness of breath. States one year ago had pneumonia, feels similar. Plan: strep and viral swabs, cxr Medications Administered Discontinued Medications Generic Name Dose Route Start Last Admin Trade Name Freq PRN Reason Stop Dose Admin Acetaminophen 975 mg 06/09/24 19:38 06/09/24 20:44 Acetaminophen 325 Mg Tablet PO 06/09/24 19:39 975 mg ONCE ONE Administration Ibuprofen 800 mg 06/09/24 19:24 06/09/24 19:28 Ibuprofen 800 Mg Tablet PO 06/09/24 19:25 800 mg ONCE ONE Administration Ibuprofen 600 mg 06/09/24 19:38 06/09/24 21:22 Ibuprofen 600 Mg Tablet PO 06/09/24 19:39 Not Given ONCE ONE Medical Decision Making Medical Decision Making [facility] Narrative: Patient is a 33-year-old female presenting for evaluation of upper respiratory symptoms with onset today as per HPI. COVID-19/influenza/RSV RSV testing is negative. 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 CXR without evidence of pneumonia. She appears fatigued, was febrile and tachycardic, has no tachypnea/hypoxia. Speaking clear full sentences, ambulatory with steady gait. Discussed conservative treatment including rest, hydration, Tylenol/ibuprofen as needed for fever and body aches, saline nasal spray, humidifier, [id number] cold medication. Advised to follow-up with primary care provider as needed, discussed reasons to return back to the emergency department. All questions were answered. Patient discharged home in stable condition. Differential Diagnosis Differential Diagnoses: The differential diagnosis associated with the presentation includes ( See narrative above) Admission/Observation Consideration of admission/observation: Escalation of care including admission/observation considered ( see narrative above) Lab Data [facility] Lab Attestation statement: I reviewed the patient's lab results. ( see narrative above) Labs: Lab Results 06/09/24 Range/Units 17:59 Influenza Type A (PCR) NEGATIVE (Negative) Influenza Type B (PCR) NEGATIVE (Negative) RSV RNA Qual (PCR) NEGATIVE (Negative) SARS-CoV-2 RNA (RT-PCR) NEGATIVE (Negative) S. pyogenes GrpA RENETTA Negative (Negative) Independent Interpretation I performed an independent interpretation of an: Plain X-Ray (No consolidation infiltrate) Radiology Impression Discussion of test interpretation with radiology: I have reviewed the radiologist's reading. Radiologist Impression: XR/XR chest 2V IMPRESSION: Unremarkable examination. Independent Historian Clinical information obtained from an independent historian. History obtained from or confirmed by: Spouse Prescription Management I considered prescription management with: Pain Medication ( acetaminophen/ibuprofen) Discharge Plan Discharge Clinical Impression: Upper respiratory infection Patient Disposition: Home, Self-Care Instructions: Upper Respiratory Infection (ED) Additional Instructions: Be sure to rest, stay well hydrated drinking plenty of fluids, eat small frequent meals. You can take ibuprofen 200 mg, 3 tablets (600mg) every 6-8 hours as needed for pain, in addition to Tylenol 500 mg, 2 tablets (1,000mg) every 4-6 hours as needed for pain, but not to exceed 3 doses daily (3,000mg).? [id number] cold medications may be helpful as well for symptoms. Saline nasal spray, humidifier may be helpful for nasal congestion. You may return to the emergency department with any new or worsening symptoms or concerns. Follow-up with your primary care provider as needed. Should remain out of school/ work until symptoms have resolved and have been without a fever for 24 hours without the use of Tylenol or ibuprofen. Prescriptions: New Chloraseptic Throat [place] 1.4 % aerosol,spray 4 spray mucous membrane Q4H PRN (Reason: sore throat) Qty: 177 0RF ibuprofen 600 mg tablet 600 mg PO Q8H PRN (Reason: fever or pain) Qty: 30 0RF acetaminophen 500 mg capsule 1,000 mg PO Q6H PRN (Reason: fever or pain) Qty: 30 0RF No Action prednisone 20 mg tablet 40 mg PO DAILY Qty: 10 0RF albuterol sulfate 90 mcg/actuation HFA aerosol inhaler 2 puff inhalation Q6H PRN (Reason: shortness of breath or wheezing) Qty: 6.7 0RF sulfamethoxazole-trimethoprim [Bactrim DS] 800-160 mg tablet 1 tab PO BID 10 Days Qty: 20 0RF cefdinir 300 mg capsule 300 mg PO BID 7 Days Qty: 14 0RF Referrals: [facility] [Primary Care Provider] - Interventions: ED Discharge Assessment Last Done: 06/09/24 22:09 Discharge Date/Time: 06/09/24 22:10 Print Language: Macedonian
[2024-06-09 18:15] LABS: IDNOW Serial# 08D9AD1C; Strep A Nucleic Acid Negative (Negative)
[2024-06-09 18:48] LABS: Influenza A PCR NEGATIVE (Negative); Influenza B PCR NEGATIVE (Negative); Resp Syncy Virus RNA Qual PCR NEGATIVE (Negative); SARS COV2 PCR INHOUSE NEGATIVE (Negative)
[2024-06-09 19:19] VITALS: BP 118/74; PULSE 93; RESP 18; TEMP 39.2; O2SAT 98
[2024-06-09] MEDS: Ibuprofen 800 MG TABLET PO (19:28)
[2024-06-09] MEDS: Acetaminophen 325 MG TABLET 975 MG PO (20:44)
[2024-06-09 20:57] VITALS: TEMP 38.7
[2024-06-09 21:00] VITALS: TEMP 38.7
[2024-06-09 22:09] VITALS: BP 00/00; PULSE 60; RESP 14; TEMP 38.7; O2SAT 95
== END 2024-06-09 22:10 | disposition home or self-care (01) ==
PROVIDERS: Registered Nurse Emergency; Emergency Provider Internal Medicine
DX: J06.9 Acute upper respiratory infection, unspecified (principal); R50.9 Fever, unspecified; Z03.818 Encounter for observation for suspected exposure to other biological agents ruled out; R05.9 Cough, unspecified
CPT/HCPCS: 0241U; 71046; 87651; 99283